=== PATIENT | female | born 1990 | race Caucasian/White ===

== ENCOUNTER 2018-04-28 18:10 | Outpatient (CLI) | payer OTHER ==
[2018-04-28 19:12] LABS: ADD MAN DIFF? NO
[2018-04-28 19:16] LABS: BASOPHILS % 0.4 % (0.0-2.0); EOSINOPHILS # 0.2 10^3/ul (0.0-0.5); EOSINOPHILS % 1.9 % (0.0-7.0); HEMATOCRIT 31.5 % (37.0-47.0); HEMOGLOBIN 10.2 g/dl (12.0-16.0); LYMPHOCYTES # 1.5 10^3/ul (0.8-2.9); LYMPHOCYTES % 14.7 % (15.0-51.0); MEAN CORPUSCULAR HGB CONC 32.4 g/dl (32.0-37.0); MEAN CORPUSCULAR VOLUME 86.5 fl (82.0-101.0); MEAN PLATELET VOLUME 8.8 fl (7.4-10.4); MONOCYTE # 1.1 10^3/ul (0.3-0.9); MONOCYTES % 10.8 % (0.0-11.0); NEUTROPHIL # 7.3 10^3/ul (1.6-7.5); NEUTROPHILS % 70.2 % (39.0-77.0); PLATELET COUNT 211 10^3/UL (140-415); RED BLOOD COUNT 3.64 10^6/ul (4.20-5.40); RED CELL DISTRIBUTION WIDTH 13.1 % (11.5-14.5)
[2018-04-28 19:16] LABS: WHITE BLOOD COUNT 10.4 10^3/ul (4.8-10.8)
[2018-04-28 19:57] LABS: ADD UMIC YES; UR ASCORBIC ACID NEGATIVE (NEGATIVE); UR BILIRUBIN (Dip) NEGATIVE (NEGATIVE); UR BLOOD (Dip) NEGATIVE (NEGATIVE); UR CLARITY CLEAR (CLEAR); UR COLOR YELLOW (YELLOW); UR GLUCOSE (Dip) NEGATIVE (NEGATIVE); UR KETONES (Dip) NEGATIVE (NEGATIVE); UR LEUKOCYTE ESTERASE (Dip) TRACE Leu/ul (NEGATIVE); UR NITRITE (Dip) NEGATIVE (NEGATIVE); UR RBC 0 /HPF (0-5); UR SPECIFIC GRAVITY (Dip) 1.009 (1.003-1.030); UR TOTAL PROTEIN (Dip) NEGATIVE (NEGATIVE); UR UROBILINOGEN (Dip) NEGATIVE (NEGATIVE); UR WBC 1 /HPF (0-5)
== END 2018-04-28 20:40 | disposition home or self-care (01) ==
LOC: OBT 18:10 → L-D 18:11 → OBT 20:40
DX: O26.893 Other specified pregnancy related conditions, third trimester (principal); Z3A.30 30 weeks gestation of pregnancy; R10.30 Lower abdominal pain, unspecified
CPT/HCPCS: 76817; 76818; 81001; 85025; 87086

== ENCOUNTER 2018-07-05 14:11 | Inpatient (IN) | payer OTHER ==
[2018-07-05] MEDS ORDERED: OXYTOCIN 30 UNITS/LR 500 ML IV ×2 (14:30→22:30)
[2018-07-05] MEDS ORDERED: MISOPROSTOL 200 MCG TAB PR ×2 (14:30→22:30)
[2018-07-05] MEDS ORDERED: CARBOPROST 250 MCG INJ IM ×2 (14:30→22:30)
[2018-07-05] MEDS ORDERED: METHYLERGONOVINE 0.2 MG INJ IM ×2 (14:30→22:30)
[2018-07-05 15:00] LABS: ADD MAN DIFF? NO
[2018-07-05 15:02] LABS: WHITE BLOOD COUNT 10.2 10^3/ul (4.8-10.8)
[2018-07-05 15:02] LABS: BASOPHILS % 0.4 % (0.0-2.0); EOSINOPHILS # 0.1 10^3/ul (0.0-0.5); EOSINOPHILS % 0.7 % (0.0-7.0); LYMPHOCYTES # 1.3 10^3/ul (0.8-2.9); LYMPHOCYTES % 12.2 % (15.0-51.0); MEAN CORPUSCULAR HGB CONC 32.4 g/dl (32.0-37.0); MEAN CORPUSCULAR VOLUME 80.3 fl (82.0-101.0); MEAN PLATELET VOLUME 9.3 fl (7.4-10.4); MONOCYTE # 0.7 10^3/ul (0.3-0.9); MONOCYTES % 6.8 % (0.0-11.0); NEUTROPHIL # 8.1 10^3/ul (1.6-7.5); NEUTROPHILS % 78.9 % (39.0-77.0); PLATELET COUNT 305 10^3/UL (140-415); RED BLOOD COUNT 4.61 10^6/ul (4.20-5.40); RED CELL DISTRIBUTION WIDTH 15.8 % (11.5-14.5)
[2018-07-05 15:22] LABS: INR 0.86; PROTIME 11.8 Sec (11.9-14.9); PT RATIO 0.9
[2018-07-05] MEDS: LACTATED RINGER'S 1,000 ML IV ×2 (15:22→23:02)
[2018-07-05 15:23] LABS: PARTIAL THROMBOPLASTIN TIME 27.2 Sec (23.0-35.0)
[2018-07-05] MEDS ORDERED: CEFAZOLIN 1 GM INJ (16:00)
[2018-07-05] MEDS ORDERED: PROPOFOL 200 MG INJ (16:00)
[2018-07-05] MEDS ORDERED: morphine SULFATE/PF (10 MG/10 ML) INJ (16:39)
[2018-07-05] MEDS ORDERED: FENTAnyl 50 MCG/ML VIAL (16:39)
[2018-07-05] MEDS ORDERED: PHENYLephrine (100 MCG/ML) 10ML SYG (16:50)
[2018-07-05] MEDS ORDERED: DEXAMETHASONE 4 MG/ML 1 ML INJ (16:57)
[2018-07-05] MEDS ORDERED: ONDANSETRON 4 MG INJ (16:57)
[2018-07-05] MEDS ORDERED: FAMOTIDINE 20 MG INJ (16:58)
[2018-07-05] MEDS: AZITHROMYCIN 500MG/NS (PMX) 250 ML IVPB (17:00)
[2018-07-05] MEDS ORDERED: MIDAZOLAM 1 MG/ML 2 ML INJ (17:11)
[2018-07-05 17:22] LABS: AMPHETAMINE/METHAMPHETAMINE NEGATIVE (NEGATIVE); BARBITURATES NEGATIVE (NEGATIVE); BENZODIAZEPINES NEGATIVE (NEGATIVE); CANNABINOIDS NEGATIVE (NEGATIVE); COCAINE NEGATIVE (NEGATIVE); OPIATES NEGATIVE (NEGATIVE)
[2018-07-05] MEDS: OXYTOCIN 30 UNITS/LR 500 ML IV (17:52)
[2018-07-05] MEDS: CEFAZOLIN 2 GM/50 ML (PMX) 50 ML IVPB (18:22)
[2018-07-05] MEDS: KETOROLAC 30 MG INJ IV (19:35)
[2018-07-05] MEDS ORDERED: ZOLPIDEM 5 MG TAB PO (22:30)
[2018-07-05] MEDS ORDERED: NA PHOSPHATE/BIPHOS 133 ML ENEMA PR (22:30)
[2018-07-05] MEDS ORDERED: DIPHENHYDRAMINE 50 MG INJ IV (22:30)
[2018-07-05] MEDS ORDERED: NALOXONE (0.4 MG/ML) INJ IV (22:30)
[2018-07-05] MEDS ORDERED: HYDROmorphONE 0.5 MG/0.5 ML SYG IV ×2 (22:30)
[2018-07-06] MEDS: CEFAZOLIN 2 GM/50 ML (PMX) 50 ML IVPB ×3 (01:08→16:13)
[2018-07-06] MEDS: KETOROLAC 30 MG INJ IV ×3 (01:09→16:43)
[2018-07-06] MEDS: CLINDAMYCIN 300 MG CAP PO ×4 (06:00→17:39)
[2018-07-06] MEDS: LACTATED RINGER'S 1,000 ML IV ×2 (06:50→15:00)
[2018-07-06] MEDS: ACETAMINOPHEN 500 MG TAB PO (07:15)
[2018-07-06 08:07] LABS: ADD MAN DIFF? NO
[2018-07-06 08:14] LABS: WHITE BLOOD COUNT 16.8 10^3/ul (4.8-10.8)
[2018-07-06 08:14] LABS: BASOPHILS % 0.2 % (0.0-2.0); EOSINOPHILS % 0.2 % (0.0-7.0); HEMATOCRIT 31.4 % (37.0-47.0); HEMOGLOBIN 9.9 g/dl (12.0-16.0); LYMPHOCYTES # 1.3 10^3/ul (0.8-2.9); LYMPHOCYTES % 7.9 % (15.0-51.0); MEAN CORPUSCULAR HEMOGLOBIN 25.6 pg (29.0-33.0); MEAN CORPUSCULAR HGB CONC 31.5 g/dl (32.0-37.0); MEAN CORPUSCULAR VOLUME 81.3 fl (82.0-101.0); MEAN PLATELET VOLUME 9.7 fl (7.4-10.4); MONOCYTE # 1.3 10^3/ul (0.3-0.9); MONOCYTES % 7.7 % (0.0-11.0); NEUTROPHILS % 83.3 % (39.0-77.0); PLATELET COUNT 259 10^3/UL (140-415); RED BLOOD COUNT 3.86 10^6/ul (4.20-5.40); RED CELL DISTRIBUTION WIDTH 15.7 % (11.5-14.5)
[2018-07-06 16:07] LABS: RAPID PLASMA REAGIN NONREACTIVE (NR)
[2018-07-06] MEDS: BISACODYL 10 MG SUPP PR (16:43)
[2018-07-06] MEDS: LANOLIN HPA 1 PKT TOP (22:13)
[2018-07-06] MEDS: IBUPROFEN 800 MG TAB PO (22:13)
[2018-07-06] MEDS: SENNA/DOCUSATE NA (8.6MG/50MG) TAB PO (22:14)
[2018-07-07] MEDS: CLINDAMYCIN 300 MG CAP PO ×4 (00:25→17:16)
[2018-07-07] MEDS: HYDROCODONE/APAP (5/325) TAB PO (00:25)
[2018-07-07] MEDS: IBUPROFEN 800 MG TAB PO ×3 (05:26→22:08)
[2018-07-07 06:48] LABS: ADD MAN DIFF? NO
[2018-07-07 06:52] LABS: WHITE BLOOD COUNT 11.5 10^3/ul (4.8-10.8)
[2018-07-07 06:52] LABS: BASOPHIL # 0.1 10^3/ul (0.0-0.1); BASOPHILS % 0.4 % (0.0-2.0); EOSINOPHILS # 0.2 10^3/ul (0.0-0.5); EOSINOPHILS % 1.7 % (0.0-7.0); HEMATOCRIT 30.4 % (37.0-47.0); HEMOGLOBIN 9.5 g/dl (12.0-16.0); LYMPHOCYTES # 1.9 10^3/ul (0.8-2.9); LYMPHOCYTES % 16.5 % (15.0-51.0); MEAN CORPUSCULAR HEMOGLOBIN 25.5 pg (29.0-33.0); MEAN CORPUSCULAR HGB CONC 31.3 g/dl (32.0-37.0); MEAN CORPUSCULAR VOLUME 81.7 fl (82.0-101.0); MEAN PLATELET VOLUME 9.4 fl (7.4-10.4); MONOCYTE # 1.1 10^3/ul (0.3-0.9); NEUTROPHIL # 8.1 10^3/ul (1.6-7.5); NEUTROPHILS % 70.5 % (39.0-77.0); PLATELET COUNT 277 10^3/UL (140-415); RED BLOOD COUNT 3.72 10^6/ul (4.20-5.40); RED CELL DISTRIBUTION WIDTH 15.9 % (11.5-14.5)
[2018-07-07] MEDS: SENNA/DOCUSATE NA (8.6MG/50MG) TAB PO ×2 (09:08→20:44)
[2018-07-07] MEDS ORDERED: ACETAMINOPHEN 325 MG TAB PO (15:00)
[2018-07-07] MEDS: OXYCODONE/ACETAMINOPHEN (5/325) TAB PO (17:16)
[2018-07-07] MEDS: LANOLIN HPA 1 PKT TOP (22:08)
[2018-07-08] MEDS: CLINDAMYCIN 300 MG CAP PO ×3 (00:17→13:21)
[2018-07-08] MEDS: HYDROCODONE/APAP (5/325) TAB PO (00:20)
[2018-07-08] MEDS: IBUPROFEN 800 MG TAB PO ×2 (06:28→13:22)
[2018-07-08] MEDS: MEASLES,MUMPS,RUBELLA VACCINE INJ SC* (09:00)
[2018-07-08] MEDS: SENNA/DOCUSATE NA (8.6MG/50MG) TAB PO (10:18)
[2018-07-08] MEDS: DIPHTH/TET/ACEL PERTUSS (ADULT) 0.5 ML VIAL IM* (10:19)
== END 2018-07-08 15:00 | disposition home or self-care (01) | DRG 788 ==
LOC: L-D 14:11 → PP1 20:34
PROVIDERS: Obstetrics & Gynecology
PROC: 10D00Z1 Extraction of Products of Conception, Low, Open Approach (ICD-10-PCS; principal; 2018-07-05 15:30)
DX: O82 Encounter for cesarean delivery without indication (principal); O77.0 Labor and delivery complicated by meconium in amniotic fluid; Z3A.40 40 weeks gestation of pregnancy; Z37.0 Single live birth; Z23 Encounter for immunization
CPT/HCPCS: 80307; 85025; 85610; 85730; 86592; 86850; 86900; 86901; 90715; 99464